=== PATIENT | female | born 1955 | race Asian ===

== ENCOUNTER 2022-08-26 09:42 | Day surgery (SDC) | payer OTHER ==
[~2022-08-26] VITALS: Ht 152.4 cm; Wt 90.7 kg
[2022-08-26] MEDS ORDERED: LIDOCAINE 2% 100 MG/5 ML UJET TP ONE (10:18)
[2022-08-26] MEDS ORDERED: MIDAZOLAM 2 MG/2 ML VIAL ONE (10:18)
[2022-08-26] MEDS ORDERED: diphenhydrAMINE 50 MG/ML VIAL ONE (10:18)
[2022-08-26] MEDS ORDERED: fentaNYL citrate 0.05 MG/ML VIAL ONE (10:18)
[2022-08-26] MEDS ORDERED: MIDAZOLAM 2 MG/2 ML VIAL IVP ONE (11:40)
[2022-08-26] MEDS ORDERED: fentaNYL citrate 0.05 MG/ML VIAL IVP ONE (11:40)
== END 2022-08-26 12:15 | disposition home or self-care (01) ==
LOC: MDS 09:42 → MMU 10:00 → MDS 12:15
PROVIDERS: ATTEND Internal Medicine Gastroenterology
DX: Z08 Encounter for follow-up examination after completed treatment for malignant neoplasm (principal); D12.2 Benign neoplasm of ascending colon; I10 Essential (primary) hypertension; E11.9 Type 2 diabetes mellitus without complications; E78.5 Hyperlipidemia, unspecified; K21.9 Gastro-esophageal reflux disease without esophagitis; Z80.0 Family history of malignant neoplasm of digestive organs; Z85.030 Personal history of malignant carcinoid tumor of large intestine; Z90.710 Acquired absence of both cervix and uterus; Z90.49 Acquired absence of other specified parts of digestive tract; Z79.899 Other long term (current) drug therapy; Z98.0 Intestinal bypass and anastomosis status
CPT/HCPCS: 45385; J2250; J3010; 88305; J1200